=== PATIENT | female | born 1970 ===

== ENCOUNTER 2017-11-22 12:55 | Emergency (ER) | payer BC ==
[2017-11-22 13:11] VITALS: BP 150/83; PULSE 85; RESP 18; TEMP 99.1; O2SAT 100
--- NOTE | 2017-11-22 14:46 | C.PDOC ---
History Of Present Illness 46yo female, presents to ED with complaints of nasal congestion, sore throat, dry/nonproductive cough, consistent with seasonal allergies. Patient states she has been using Flonase, 1 spray per nare per 12 hours with some improvement. She denies any fever, chills, and offers no other complaints. Time Seen by Provider: 11/22/17 14:23 Chief Complaint (Nursing): Cough, Cold, Congestion History Per: Patient History/Exam Limitations: no limitations Onset/Duration Of Symptoms: Days Current Symptoms Are (Timing): Still Present Location Of Pain: Sinus/es Associated Symptoms: Sore Throat, Cough, Nasal Congestion. denies: Sputum, Nausea, Vomiting, Diarrhea Additional History Per: Patient Past Medical History Reviewed: Historical Data, Nursing Documentation, Vital Signs Vital Signs: Last Vital Signs Temp 99.1 F 11/22/17 13:08 Pulse 85 11/22/17 13:08 Resp 18 11/22/17 13:08 BP 150/83 11/22/17 13:08 Pulse Ox 100 11/22/17 14:46 - Medical History PMH: No Chronic Diseases Surgical History: No Surg Hx Family History: States: No Known Family Hx - Social History Hx Alcohol Use: Yes Hx Substance Use: No Review Of Systems Except As Marked, All Systems Reviewed And Found Negative. Constitutional: Negative for: Fever, Chills ENT: Positive for: Nose Congestion, Throat Pain Respiratory: Positive for: Cough. Negative for: Shortness of Breath, Sputum Gastrointestinal: Negative for: Vomiting Physical Exam - Physical Exam Appears: Non-toxic, No Acute Distress Skin: Warm, Dry Head: Atraumatic, Normacephalic Eye(s): bilateral: Normal Inspection Nose: Other (+mild to moderate nasal congestion) Oral Mucosa: Moist Throat: Other (+ post nasal drip; + throat cobblestoning) Neck: Normal ROM, Supple Chest: Symmetrical Cardiovascular: Rhythm Regular Respiratory: Normal Breath Sounds Neurological/Psych: Oriented x3 ED Course And Treatment O2 Sat by Pulse Oximetry: 100 Medical Decision Making Medical Decision Making: seasonal allergies good Flonase compliance Add Claritin clear lungs Disposition Doctor Will See Patient In The: Office Counseled Patient/Family Regarding: Studies Performed, Diagnosis - Disposition Referrals: Constantine White MD [Medical Doctor] - Disposition: HOME/ ROUTINE Disposition Time: 14:45 Condition: GOOD Additional Instructions: sigue Flonase 1 spray cada lado del nariz cada 12 horas Empieza Claritin 10 mg diario- para las sintomas de allergias de al Temporada Sigue con Dr. Altman Instructions: Seasonal Allergies in Adults Forms: [facility] (Thai), Work Excuse Print Language: BANGLADESHI - Clinical Impression Clinical Impression: Seasonal allergies - Scribe Statement The provider has reviewed the documentation as recorded by the Scribe (Tessy Kelley) Provider Attestation: All medical record entries made by the Scribe were at my direction and personally dictated by me. I have reviewed the chart and agree that the record accurately reflects my personal performance of the history, physical exam, medical decision making, and the department course for this patient. I have also personally directed, reviewed, and agree with the discharge instructions and disposition.
== END 2017-11-22 14:50 | disposition home or self-care (01) ==
LOC: C.ER 12:55
DX: J30.2 Other seasonal allergic rhinitis (principal)

== ENCOUNTER 2018-01-09 13:47 | Emergency (ER) | payer BC ==
[2018-01-09 13:55] VITALS: BP 123/73; PULSE 88; RESP 16; TEMP 99; O2SAT 99
[2018-01-09] MEDS ORDERED: Lidocaine 5% Patch TD STA (14:18)
--- NOTE | 2018-01-09 14:18 | C.PDOC ---
History Of Present Illness 47 y/o female presents to the ER complaining of chronic neck and lower back pain for 6 months that has worsened over the past month. The patient was meant to see her PMD two days ago but her appointment was rescheduled to the following week. She stated the pain worsens with movement and weight bearing. The patient denies any trauma or radiating pain. She also denies taking any medication at home for the pain. ACUTE EXAC CHRONIC NECK AND LOWER BACK PAIN X 1 MO. PS INTERMIT PAIN X 6 MONTHS. WAS SUPPOSED TO SEE PMD 2 DAYS AGO BUT APPT WAS RESCHEDULED UNTIL NEXT WEEK. PAIN LOCALIZED, WORSE W MOVEMENT. 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 NO WEAK/ NUMB. NO PAIN MEDS TRIED. NO TRAUMA EXAM NAD NECK LIMITED FULL ROM DUE TO PAIN; NONTEND BACK NONTEND NO SPASM NO LS TEND. LIMITED ROM DUE TO PAIN NEURO NO FOCAL DEF SKIN WNL REMAINDE RNEG Time Seen by Provider: 01/09/18 13:56 Chief Complaint (Nursing): Back Pain History Per: Patient History/Exam Limitations: no limitations Onset/Duration Of Symptoms: Intermittent Episodes, Worse Since (1 month ) Current Symptoms Are (Timing): Still Present Quality Of Discomfort: "Pain" Previous Symptoms: Back Pain, Neck Pain, Chronic Pain Exacerbating Factor(s): Movement, Other (weight bearing) Past Medical History Reviewed: Historical Data, Nursing Documentation, Vital Signs Vital Signs: Last Vital Signs Temp 99 F 01/09/18 13:52 Pulse 88 01/09/18 13:52 Resp 16 01/09/18 13:52 BP 123/73 01/09/18 13:52 Pulse Ox 99 01/09/18 14:41 - Medical History PMH: No Chronic Diseases Other Surgeries: Adenoids and Breast Biopsy Family History: States: Unknown Family Hx - Social History Hx Alcohol Use: Yes Hx Substance Use: No - Immunization History Hx Tetanus Toxoid Vaccination: No Hx Influenza Vaccination: No Hx Pneumococcal Vaccination: No Review Of Systems Except As Marked, All Systems Reviewed And Found Negative. Constitutional: Negative for: Fever Musculoskeletal: Positive for: Neck Pain, Back Pain Neurological: Negative for: Numbness Physical Exam - Physical Exam Appears: Well, Non-toxic, No Acute Distress Skin: Normal Color, Warm, No Rash Head: Atraumatic, Normacephalic Eye(s): bilateral: Normal Inspection, PERRL, EOMI Ear(s): Bilateral: Normal Oral Mucosa: Moist Neck: Decreased ROM, No Other (spasm, tenderness) Chest: Symmetrical Cardiovascular: Rhythm Regular, No Murmur Respiratory: Normal Breath Sounds, No Rales, No Rhonchi, No Wheezing, Other ( NARD) Gastrointestinal/Abdominal: Normal Exam, Bowel Sounds, Soft, No Tenderness Back: Decreased ROM, No Muscle Spasm, No Other (lower spine tenderness) Extremity: Normal ROM Extremity: Bilateral: Atraumatic, Normal Color And Temperature, Normal ROM Pulses: Left Radial: Normal, Right Radial: Normal Neurological/Psych: Oriented x3 Gait: Steady Other Neurological Findings: Other (no focal deficit ) ED Course And Treatment O2 Sat by Pulse Oximetry: 99 (RA) Pulse Ox Interpretation: Normal Progress Note: Impression: 47 y/o female with chronic neck adn lower backpain. Plan: --Lidoderm 2 ea TD. --Motrin 600mg PO. --Tylenol 650 mg. --Flexeril 10 mg PO Disposition Counseled Patient/Family Regarding: Diagnosis, Need For Followup, Rx Given - Disposition Referrals: YOUR,PMD [Other] Disposition: HOME/ ROUTINE Disposition Time: 14:17 Condition: IMPROVED Prescriptions: Acetaminophen [Tylenol Extra Strength] 2 tab PO Q6 #30 tablet Cyclobenzaprine [Flexeril] 5 mg PO TID #20 tab Lidocaine 5% [Lidoderm] 1 ea TD PRN PRN #10 patch PRN Reason: Pain, Moderate (4-7) Naproxen 500 mg PO BID #30 tab Instructions: Low Back Pain (DC), Upper Back Pain (DC) Forms: [facility] (Greenlandic), Work Excuse - Clinical Impression Clinical Impression: Acute exacerbation of chronic low back pain - PA / [employer] / Resident Statement MD/DO has reviewed & agrees with the documentation as recorded. - Scribe Statement The provider has reviewed the documentation as recorded by the Scribe (Jenni Lynn) Provider Attestation: All medical record entries made by the Rickibclayton were at my direction and personally dictated by me. I have reviewed the chart and agree that the record accurately reflects my personal performance of the history, physical exam, medical decision making, and the department course for this patient. I have also personally directed, reviewed, and agree with the discharge instructions and disposition.
[2018-01-09] MEDS ORDERED: Lidocaine 5% Patch TD ONE (14:27)
== END 2018-01-09 14:30 | disposition home or self-care (01) ==
LOC: C.ER 13:47
DX: M54.5 Low back pain (principal); G89.29 Other chronic pain

== ENCOUNTER 2018-06-15 15:46 | Emergency (ER) | payer BC ==
[2018-06-15 16:01] VITALS: BP 139/87; PULSE 71; RESP 18; TEMP 98.7; O2SAT 100
--- NOTE | 2018-06-15 16:22 | C.PDOC ---
History Of Present Illness 47 yo female w/PMHx of depression come in for evaluation of depression worsen for past few weeks. Pt reports, " feels very sad, crying, missed few days of my work, dont want to see people". Pt denies any antidepressive use, denies suicidal or homocidal ideation. AT present time, pt crying, appears depressed. Time Seen by Provider: 06/15/18 16:05 Chief Complaint (Nursing): Psychiatric Evaluation History Per: Patient Past Medical History Reviewed: Historical Data, Nursing Documentation, Vital Signs Vital Signs: Last Vital Signs Temp 98.7 F 06/15/18 15:56 Pulse 71 06/15/18 15:56 Resp 18 06/15/18 15:56 BP 139/87 06/15/18 15:56 Pulse Ox 100 06/15/18 15:56 - Medical History PMH: Depression Family History: States: Unknown Family Hx - Social History Hx Alcohol Use: Yes Hx Substance Use: No - Immunization History Hx Tetanus Toxoid Vaccination: No Hx Influenza Vaccination: No Hx Pneumococcal Vaccination: No Review Of Systems Except As Marked, All Systems Reviewed And Found Negative. Constitutional: Negative for: Fever, Chills ENT: Negative for: Ear Discharge, Nose Discharge, Throat Pain, Throat Swelling Cardiovascular: Negative for: Chest Pain, Palpitations, Edema, Light Headedness Respiratory: Negative for: Cough, Shortness of Breath, Wheezing Gastrointestinal: Negative for: Nausea, Vomiting, Abdominal Pain Genitourinary: Negative for: Dysuria, Incontinence Musculoskeletal: Negative for: Neck Pain Psych: Positive for: Depression Physical Exam - Physical Exam Appears: Well, Non-toxic, No Acute Distress Skin: Normal Color, Warm, Dry, No Rash Head: Normacephalic Eye(s): bilateral: PERRL Nose: No Discharge Oral Mucosa: Moist, No Drooling Tongue: Normal Appearing Lips: Normal Appearing Throat: No Erythema, No Drooling Neck: Trachea Midline, Supple Cardiovascular: Rhythm Regular, No Murmur, No JVD Respiratory: No Decreased Breath Sounds, No Accessory Muscle Use, No Stridor, No Wheezing Gastrointestinal/Abdominal: Soft, No Tenderness, No Distention, No Guarding Back: No CVA Tenderness Extremity: Normal ROM, No Deformity, No Swelling Neurological/Psych: Oriented x3, Normal Speech ED Course And Treatment O2 Sat by Pulse Oximetry: 100 Pulse Ox Interpretation: Normal Progress Note: Pt was seen by DARIANA Dumont and discharge with outpt F/U by recommend now. Pt advised, stable for discharge and F/u with Disposition - Disposition Referrals: Sarwat Braun MD [Staff Provider] - Disposition: HOME/ ROUTINE Disposition Time: 16:48 Condition: STABLE Additional Instructions: Follow up with now for further evaluation and treatment as need return to ED if any worsening or new changes. Instructions: Depression Forms: [facility] (Estonian) Print Language: INDONESIAN - Clinical Impression Clinical Impression: Depression
== END 2018-06-15 17:16 | disposition home or self-care (01) ==
LOC: C.ER 15:46
DX: F32.9 Major depressive disorder, single episode, unspecified (principal)